=== PATIENT | male | born 1940 | race Caucasian/White ===

== ENCOUNTER 2017-02-02 12:31 | Emergency (ER) | payer OTHER ==
--- NOTE | ~2017-02-02 | ER ---
PATIENT'S NAME: VIKTORIA DIAZ [facility] AGE: 76 Y [address] ROOM: [place] [address] LOCATION: [facility] ADMIT DATE: 02/02/2017 ER/Outpatient Report DISCHARGE DATE: 02/02/2017 FAMILY PHYSICIAN: PHYSICIAN, NO ATTENDING PHYSICIAN: Mary Hooker Time of Arrival: Time of Evaluation: 1240. HISTORY OF PRESENT ILLNESS: The patient is a 76-year-old male who was brought in by family after a syncopal episode. The patient's caregiver states that he has had problems getting up from bed too fast and passing out. The patient was in bed today, got up fast, and then fell backwards hitting the back of his head. There was no loss of consciousness. The patient does present with some neck pain. ALLERGIES: SEE ATTACHED LIST. CURRENT MEDICATIONS: See his attached list which is through the [place]. MEDICAL HISTORY: Depression, insulin-dependent diabetes. Has a history of postural hypotension, hypercholesterolemia, hypothyroidism. SOCIAL HISTORY: Nonsmoker. Denies any current alcohol. REVIEW OF SYSTEMS: GENERAL: The patient is a somewhat poor historian. HEENT: Had complained of a headache and neck pain. RESPIRATORY: Has some shortness of breath especially with exertion, which is activities as occasional walk to the mailbox. CARDIOVASCULAR: No chest pain. No palpitations. No history of any arrhythmias. GASTROINTESTINAL: No recent weight loss. Denied any black stools. No abdominal pain. GENITOURINARY: No incontinence. MUSCULOSKELETAL: No complaints to his upper or lower extremities or back pain. PHYSICAL EXAMINATION: VITAL SIGNS: His blood pressure was 108/73, his temperature is 98.1, respiratory rate 20, pulse 82, his O2 saturations 95%. PATIENT'S NAME: VIKTORIA DIAZ [facility] AGE: 76 Y [address] ROOM: [place] [address] LOCATION: [facility] ADMIT DATE: 02/02/2017 ER/Outpatient Report DISCHARGE DATE: 02/02/2017 FAMILY PHYSICIAN: PHYSICIAN, NO ATTENDING PHYSICIAN: Mary Hooker GENERAL APPEARANCE: White male. He appeared alert. HEAD: Normal male balding pattern. There was no swelling or tenderness noted. He did have some slight tenderness central cervical spine area. LUNGS: Diminished breath sounds present. HEART: Tones distant but regular. ABDOMEN: Soft, nontender. EXTREMITIES: Upper and lower extremities, range of motion grossly normal. No tenderness to palpation. IMAGING DONE: CT of his head and C-spine no acute changes. Dr. Coelho said he does have a lot of degenerative changes of his cervical vertebrae. Chest x-ray, heart size appeared normal, lung avelar appeared clear. His EKG showed some low voltage but no ischemic changes. LABORATORY DATA: CBC: White count 5.7, hemoglobin 39. His ANC was 4.3. His chemistry, CMS: Glucose 205. Creatinine was slightly elevated at 1.5. PTT 24, protime 10.0. INR was 0.95. ASSESSMENT: 1. Mild dehydration. 2. Postural hypotension. 3. Depression, anxiety. 4. Hypothyroidism. 5. Hypercholesterolemia. 6. Insulin-dependent diabetes. PLAN: The patient was given a liter of fluid. Recommendation that he try to get up from a supine position or from his chair slowly and wait before he starts to walk; however, family says he does not follow directions well. Follow up PA as indicated. LOTUS HOFF FOR MD GRZEGORZ ALAN/kerri /[id number] d: 02/02/17 2311 t: 02/08/17 0711, OUTPATIENT REPORT
[2017-02-02 13:09] LABS: BASOPHIL # 0.1 K/uL (0.0-0.2); BASOPHIL % 0.9 %; EOSINOPHIL # 0.1 K/uL (0.0-0.5); EOSINOPHIL % 2.3 %; HEMATOCRIT 40.9 % (37.0-53.0); HEMOGLOBIN 13.9 g/dL (11.0-16.0); IMMATURE GRANULOCYTE % 0.2 %; LYMPHOCYTE # 0.8 K/uL (0.8-4.0); LYMPHOCYTE % 13.5 %; MCH 30.5 pg (27.0-34.0); MCV 89.7 fl (83.0-98.0); MONOCYTE # 0.4 K/uL (0.0-1.0); MONOCYTE % 7.2 %; MPV 8.9 fl (9.4-12.4); NEUTROPHIL # (ANC) 4.3 K/uL (1.4-9.0); NEUTROPHIL % 75.9 %; NRBC % 0 /100WBC (0-0.00); PLATELET COUNT 158 K/uL (150-450); RBC 4.56 M/uL (3.50-5.50); RDW-CV 13.2 % (11.9-14.6); WBC 5.7 K/uL (4.0-11.0)
[2017-02-02 13:17] LABS: INR - (THERAPEUTIC) 0.95 (0.92-1.07); PTT 24 SECONDS (25-32)
[2017-02-02 13:28] LABS: ALBUMIN 3.4 gm/dL (3.5-5.0); ALK PHOS 64 IU/L (33-138); ALT 22 IU/L (12-78); ANION GAP 12.3 (10.0-19.0); AST 17 IU/L (10-40); BLOOD UREA NITROGEN 19 mg/dL (6-24); CALCIUM 8.6 mg/dL (8.5-10.5); CHLORIDE 104 mMol/L (96-110); CO2 25 mMol/L (22-32); CPK 51 IU/L (35-332); CREATININE 1.5 mg/dL (0.6-1.3); MAGNESIUM 2.1 mg/dL (1.8-2.6); POTASSIUM 4.3 mMol/L (3.7-5.1); SODIUM 137 mMol/L (135-145); TOTAL BILIRUBIN 0.4 mg/dL (0.0-1.5); TOTAL PROTEIN 6.5 g/dL (6.0-8.4)
== END 2017-02-02 14:30 | disposition disaster alternative care site (69) ==
LOC: GMED 12:31
PROVIDERS: Physician Assistant Medical
DX: E86.0 Dehydration (principal); I95.1 Orthostatic hypotension; E11.9 Type 2 diabetes mellitus without complications; F32.9 Major depressive disorder, single episode, unspecified; F41.9 Anxiety disorder, unspecified; E03.9 Hypothyroidism, unspecified; R51 Headache; E78.00 Pure hypercholesterolemia, unspecified; R06.02 Shortness of breath; Z79.4 Long term (current) use of insulin; Z79.82 Long term (current) use of aspirin; Z79.899 Other long term (current) drug therapy; W18.00XA Striking against unspecified object with subsequent fall, initial encounter
CPT/HCPCS: J7030